=== PATIENT | female | born 1990 | race Caucasian/White ===

== ENCOUNTER 2020-03-30 05:56 | Emergency (ER) | payer BC ==
[2020-03-30 06:22] LABS: Absolute Lymphocytes (CBC) 2.5 K/uL (0.7-4.9); Basophils % 1.1 % (0-1.3); Hematocrit 35.6 % (36.0-45.0); Lymphocytes % 20.6 % (15.3-44.8); MPV 7.8 fL (7.6-11.3); RBC Red Blood Cell Count 4.21 M/uL (3.86-4.86)
[2020-03-30] MEDS ORDERED: MORPHINE 4 MG/ML SYR ONE (06:29)
[2020-03-30] MEDS ORDERED: ONDANSETRON 4 MG/2 ML VIAL ONE (06:29)
[2020-03-30 06:37] LABS: ALT/SGPT 17 U/L (12-78); AST/SGOT 12 U/L (15-37); Albumin 3.4 g/dL (3.4-5.0); Alkaline Phosphatase 112 U/L (45-117); BUN Blood Urea Nitrogen 16 mg/dL (7-18); Bicarbonate 26 mmol/L (21-32); Bilirubin Direct < 0.1 mg/dL (0-0.2); Bilirubin Total 0.2 mg/dL (0.2-1.0); Glucose Level 115 mg/dL (74-106); Lipase 72 U/L (73-393); Potassium 3.9 mmol/L (3.5-5.1); Sodium Level 140 mmol/L (136-145)
[2020-03-30 07:42] LABS: Urine Blood TRACE (NEG); Urine Glucose NEGATIVE (NEG); Urine Protein NEGATIVE (NEG); Urine Specific Gravity >1.030 (1.005-1.030); Urine pH 5.5 (5.0-7.0)
--- NOTE | 2020-03-30 07:44 | RAD REPORT ---
EXAM DESCRIPTION: CT - Abdomen Pelvis W Contrast - 03/30/2020 7:29 am CLINICAL HISTORY: Abdominal pain/upper abdominal pain COMPARISON: none. TECHNIQUE: Computed axial tomography of the abdomen pelvis was obtained. 100 cc Isovue-300 was admin istered intravenously. Oral contrast was not requested which limits evaluation of bowel. All CT scans are performed using dose optimization technique as appropriate and may include automated exposure control or mA/KV adjustment according to patient size. FINDINGS: The liver, spleen, pancreas, adrenal and kidneys appear unremarkable. There is no evidence of diverticulitis. Normal appendix Small gallstone. Gallbladder wall is not thickened. Small umbilical hernia contains fat IMPRESSION: Cholelithiasis without evidence of cholecystitis
--- NOTE | 2020-03-30 07:58 | ER ---
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 pt states this pain radiates into the right upper back and right shoulder area, denies N/V/D/Fever/Chills at this time for triage. Coronavirus screen: Client denies travel out of the [place] in the last 14 days. At this time, the client does not indicate any symptoms associated with coronavirus-19. Ebola Screen: Patient negative for fever greater than or equal to 101.5 degrees Fahrenheit, and additional compatible Ebola Virus Disease symptoms Patient denies exposure to infectious person. Patient denies travel to an Ebola-affected area in the 21 days before illness onset. No symptoms or risks identified at this time. Initial Sepsis Screen: Does the patient have a suspected source of infection? Yes: Acute abdominal pain. Risk Assessment: Do you want to hurt yourself or someone else? Patient reports no desire to harm self or others. Onset of symptoms was March 30, 2020. Care prior to arrival: None. Transition of care: patient was not received from another setting of care. 06:05 Acuity: ANUEL 3 sg 06:05 Method Of Arrival: Ambulatory 06:19 Initial Sepsis Screen: Does the patient meet any 2 criteria? No. Patient's initial rv sepsis screen is negative. Historical: - Allergies: 06:07 No Known Allergies; sg - Home Meds: 06:07 levothyroxine 100 mcg tab 1 tab once daily [Active]; sg - PMHx: 06:07 Hypothyroidism; sg - PSHx: 06:07 None; sg - Immunization history:: Adult Immunizations up to date. - Social history:: Smoking status: Patient denies any tobacco usage or history of. - Family history:: not pertinent. - Hospitalizations: : No recent hospitalization is reported. Screenin:19 Abuse screen: Denies threats or abuse. Denies injuries from another. Nutritional rv screening: No deficits noted. Tuberculosis screening: No symptoms or risk factors identified. Fall Risk None identified. Assessment: 06:18 General: Appears uncomfortable, Behavior is calm, cooperative. Pain: Complains of pain rv in right upper quadrant. Neuro: Level of Consciousness is awake, alert, obeys commands, Oriented to person, place, time, situation. Cardiovascular: Patient's skin is warm and dry. Respiratory: Airway is patent Respiratory effort is even, unlabored. GI: Bowel sounds present X 4 quads. Abd is soft and non tender X 4 quads. Derm: Skin is intact. 07:00 Reassessment: RECD REPORT FROM HILDA NIÑO. 30YO BF P/W ABDOMINAL PAIN, JOSE MARIA W/U IN bp PROCESS. 07:16 Reassessment: PT to CT at this time VIA wheelchair. ss 07:20 Reassessment: Patient appears in no apparent distress at this time. Patient and/or ss family updated on plan of care and expected duration. Pain level reassessed. Patient is alert, oriented x 3, equal unlabored respirations, skin warm/dry/pink. Patient denies pain at this time. 07:53 Reassessment: CT results back. 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 Dr. Jung states to ss go ahead and CANCEL ultrasound at this time. Pt appears comfortable. Denies pain at this time. Respirations remain even and unlabored. Vital Signs: 06:18 BP 139 / 97; Pulse 91; Resp 18; Temp 97.6; Pulse Ox 99% ; Weight 108.86 kg; rv 07:14 BP 130 / 80; Pulse 68; Resp 18; Temp 97.9(TE); Pulse Ox 99% on R/A; mh5 ED Course: 06:00 Patient arrived in ED. bp1 06:01 Drake Beck MD is Attending Physician. rn 06:02 Raj Garza RN is Primary Nurse. rv 06:06 Triage completed. sg 06:07 Arm band placed on. sg 06:12 Initial lab(s) drawn, by me, sent to lab. Inserted saline lock: 20 gauge in right rv antecubital area, using aseptic technique. Blood collected. 06:19 Patient has correct armband on for positive identification. Placed in gown. Bed in low rv position. Call light in reach. Pulse ox on. NIBP on. 07:08 Attending Physician role handed off by Drake Beck MD [facility] 07:08 Radames Jung MD is Attending Physician. omayra 07:29 CT Abd/Pelvis - IV Contrast Only In Process Unspecified. EDMS 07:54 No provider procedures requiring assistance completed. IV discontinued, intact, ss bleeding controlled, No redness/swelling at site. Pressure dressing applied. 07:58 Jovanny Lozano MD is Referral Physician. omayra Administered Medications: 06:19 Drug: Zofran (Ondansetron) 4 mg Route: IVP; Site: right antecubital; rv 07:48 Follow up: Response: No adverse reaction ss 06:20 Drug: morphine 4 mg {Note: RASS 0.} Route: IVP; Site: right antecubital; rv 07:48 Follow up: Response: No adverse reaction; Pain is decreased ss Outcome: 07:57 Discharge ordered by . omayra 08:08 Discharged to home ambulatory. ss 08:08 Condition: improved 08:08 Discharge instructions given to patient, Instructed on discharge instructions, follow up and referral plans. medication usage, Demonstrated understanding of instructions, follow-up care, medications, Prescriptions given X 2. 08:08 Patient left the ED. ss Signatures: Dispatcher [employer] EDMS Gera Eisenberg RN RN sg Anderson, Corey, MD MD cha Nieto, Roman, MD MD rn Smirch, Shelby, RN RN ss Martinez, Maria [facility] Juan Pablo Contreras RN RN bp Vicente, Ronaldo RN RN rv Jessica Calderon bp1
--- NOTE | 2020-03-30 07:58 | EDPHYS ---
Physician Documentation [facility] Name: Sarah Daley Age: 30 yrs Sex: Female : 1990 Arrival Date: 03/30/2020 Time: 06:00 Bed 5 Private MD: ED Physician Radames Jung HPI: 03/30 06:13 This 30 yrs old Female presents to ER via Ambulatory with complaints of Abdominal Pain, rn -Radiating to shoulder. 06:13 The patient presents with abdominal pain in the epigastric area, in the right upper rn quadrant. Onset: The symptoms/episode began/occurred 3 hour(s) ago. The symptoms radiate to the right shoulder. The symptoms are described as crampy, sharp. Modifying factors: The symptoms are alleviated by nothing, the symptoms are aggravated by food, touching the area. Severity of pain: At its worst the pain was moderate in the emergency department the pain is unchanged. The patient has experienced similar episodes in the past. The patient has not recently seen a physician. Reports several similar episodes over last month or so, + upper abd pain radiates to back and shoulder, assoc with nausea, worse with food. No trauma. No blood in stool. No fever. Ate taquitos and chocolate milk for dinner. . Historical: - Allergies: 06:07 No Known Allergies; sg - Home Meds: 06:07 levothyroxine 100 mcg tab 1 tab once daily [Active]; sg - PMHx: 06:07 Hypothyroidism; sg - PSHx: 06:07 None; sg - Immunization history:: Adult Immunizations up to date. - Social history:: Smoking status: Patient denies any tobacco usage or history of. - Family history:: not pertinent. - Hospitalizations: : No recent hospitalization is reported. ROS: 06:13 Constitutional: Negative for fever, chills, and weight loss, Eyes: Negative for injury, rn pain, redness, and discharge, Cardiovascular: Negative for chest pain, palpitations, and edema, Respiratory: Negative for shortness of breath, cough, wheezing, and pleuritic chest pain, Abdomen/GI: Negative for vomiting, diarrhea, and constipation, : Negative for injury, bleeding, discharge, and swelling, MS/Extremity: Negative for injury and deformity, Skin: Negative for injury, rash, and discoloration, Neuro: Negative for headache, weakness, numbness, tingling, and seizure. Exam: 06:13 Constitutional: Overweight female, ambulatory to room, seems uncomfortable Head/Face: rn Normocephalic, atraumatic. Cardiovascular: Regular rate and rhythm. No pulse deficits. Respiratory: Speaking full sentences, unlabored. Abdomen/GI: soft, + RUQ tenderness, + epigastric tenderness, neg boucher Skin: Warm, dry with normal turgor. Normal color with no rashes, no lesions, and no evidence of cellulitis. MS/ Extremity: Pulses equal, no cyanosis. Neurovascular intact. Full, normal range of motion. Equal circumference. Neuro: Awake and alert, GCS 15 Vital Signs: 06:18 BP 139 / 97; Pulse 91; Resp 18; Temp 97.6; Pulse Ox 99% ; Weight 108.86 kg; rv 07:14 BP 130 / 80; Pulse 68; Resp 18; Temp 97.9(TE); Pulse Ox 99% on R/A; mh5 MDM: 06:01 Patient medically screened. rn 07:56 Differential diagnosis: cholecystitis, Cholelithiasis, gastritis, Hepatitis, omayra non-specific abd pain, pancreatitis, Ureterolithiasis, urinary tract infection. Data reviewed: vital signs, nurses notes, lab test result(s), radiologic studies, CT scan. Data interpreted: media monitor: not applicable for this patient encounter. rate is 68 beats/min, rhythm is regular, Pulse oximetry: on room air is 99 %. Test interpretation: by ED physician or midlevel provider:. Counseling: I had a detailed discussion with the patient and/or guardian regarding: the historical points, exam findings, and any diagnostic results supporting the discharge/admit diagnosis, lab results, radiology results, the need for outpatient follow up, for definitive care, a general surgeon. 03/30 06:10 Order name: Basic Metabolic Panel; Complete Time: 06:45 rn 03/30 06:10 Order name: CBC with Diff; Complete Time: 06:45 rn 03/30 06:10 Order name: Hepatic Function; Complete Time: 06:45 rn 03/30 06:10 Order name: Lipase; Complete Time: 06:45 rn 03/30 07:20 Order name: Urine Dipstick--Ancillary (enter results); Complete Time: 07:52 em1 03/30 07:20 Order name: Urine --Ancillary (enter results); Complete Time: 07:52 em1 03/30 06:10 Order name: IV Saline Lock; Complete Time: 06:20 rn 03/30 06:10 Order name: Labs collected and sent; Complete Time: 06:20 rn 03/30 06:10 Order name: Urine Test (obtain specimen); Complete Time: 07:13 rn 03/30 06:10 Order name: Urine Dipstick-Ancillary (obtain specimen); Complete Time: 07:13 rn 03/30 06:10 Order name: CT Abd/Pelvis - IV Contrast Only; Complete Time: 07:52 rn 03/30 06:10 Order name: NPO; Complete Time: 06:20 rn Administered Medications: 06:19 Drug: Zofran (Ondansetron) 4 mg Route: IVP; Site: right antecubital; rv 07:48 Follow up: Response: No adverse reaction ss 06:20 Drug: morphine 4 mg {Note: RASS 0.} Route: IVP; Site: right antecubital; rv 07:48 Follow up: Response: No adverse reaction; Pain is decreased ss Disposition: 03/30/20 07:57 Discharged to Home. Impression: Abdominal tenderness, Cholelithiasis. - Condition is Stable. - Discharge Instructions: Abdominal Pain, Adult, Cholelithiasis, Cholelithiasis, Bkgs-hg-Flge, Abdominal Pain, Adult, [id number]-rr-[id number]. - Prescriptions for Pepcid 20 mg Oral Tablet - take 1 tablet by ORAL route every 12 hours for 10 days; 20 tablet. Zofran 4 mg Oral Tablet - take 1 tablet by ORAL route every 12 hours As needed; 20 tablet. - Medication Reconciliation Form, Thank You Letter, Antibiotic Education, Prescription Opioid Use form. - Follow up: Private Physician; When: 2 - 3 days; Reason: Recheck today's complaints, Continuance of care, Re-evaluation by your physician. Follow up: Jovanny Lozano MD; When: 2 - 3 days; Reason: Recheck today's complaints, Re-evaluation by your physician. - Problem is new. - Symptoms have improved. Signatures: Dispatcher [employer] EDGera Street RN RN sg Anderson, Corey, MD MD cha Nieto, Roman, MD MD rn Smirch, Shelby, RN RN Raj Garza, RN RN rv Corrections: (The following items were deleted from the chart) 07:58 07:57 03/30/2020 07:57 Discharged to Home. Impression: Abdominal tenderness; omayra Cholelithiasis. Condition is Stable. Forms are Medication Reconciliation Form, Thank You Letter, Antibiotic Education, Prescription Opioid Use. Follow up: Private Physician; When: 2 - 3 days; Reason: Recheck today's complaints, Continuance of care, Re-evaluation by your physician. Problem is new. Symptoms have improved. omayra 08:08 07:58 03/30/2020 07:57 Discharged to Home. Impression: Abdominal tenderness; ss Cholelithiasis. Condition is Stable. Forms are Medication Reconciliation Form, Thank You Letter, Antibiotic Education, Prescription Opioid Use. Follow up: Private Physician; When: 2 - 3 days; Reason: Recheck today's complaints, Continuance of care, Re-evaluation by your physician. Follow up: Dr. Jovanny Lozano; When: 2 - 3 days; Reason: Recheck today's complaints, Re-evaluation by your physician. Problem is new. Symptoms have improved. omayra
[2020-03-30 08:15] VITALS: O2SAT 99
[2020-03-30 08:17] VITALS: BP 130/80; TEMP 97.9
== END 2020-03-30 08:08 | disposition home or self-care (01) ==
LOC: ER 05:56
DX: K80.20 Calculus of gallbladder without cholecystitis without obstruction (principal); E03.9 Hypothyroidism, unspecified
CPT/HCPCS: 85025; 80048; 36415; 81025; 80076; 81003; 83690; 74177; 96375; 96374; 99284; Q9967; J2405

== ENCOUNTER 2020-04-08 07:38 | Day surgery (SDC) | payer BC ==
[2020-04-04 15:44] LABS: Absolute Lymphocytes (CBC) 1.9 K/uL (0.7-4.9); Basophils % 0.7 % (0-1.3); Hematocrit 36.9 % (36.0-45.0); Lymphocytes % 23.5 % (15.3-44.8); MPV 7.8 fL (7.6-11.3); RBC Red Blood Cell Count 4.37 M/uL (3.86-4.86)
[2020-04-04 15:56] LABS: ALT/SGPT 22 U/L (12-78); AST/SGOT 19 U/L (15-37); Albumin 3.6 g/dL (3.4-5.0); Alkaline Phosphatase 103 U/L (45-117); BUN Blood Urea Nitrogen 10 mg/dL (7-18); Bicarbonate 27 mmol/L (21-32); Bilirubin Direct < 0.1 mg/dL (0-0.2); Bilirubin Total 0.5 mg/dL (0.2-1.0); Glucose Level 84 mg/dL (74-106); Potassium 4.6 mmol/L (3.5-5.1); Protein, Total 8.4 g/dL (6.4-8.2); Sodium Level 139 mmol/L (136-145)
--- OUTSIDE RECORDS SUMMARY | 2020-04-08 07:41 | XMS REPORT | Continuity of Care Document ---
:1990 Author Organization [facility] t Address [address] [place] [address] Care Team Providers Name Role Phone Kamla Ghosh Attending Clinician Problems This patient has no known problems. Allergies, Adverse Reactions, Alerts This patient has no known allergies or adverse reactions. Medications This patient has no known medications. Procedures This patient has no known procedures. Encounters Start End Encounter Admission Attending Care Care Encounter Source Date/Time Date/Time Type Type Clinicians Facility Department ID 2019-12-25 2019-12-25 Office LUCINDA Eaton [id number] 09:37:08 10:44:19 Visit Lindsay Cason SHIPPING PACKER [id number] [facility] [id number] MATERNAL [id number] & CHILD [address] [place] [address] Results This patient has no known results.
[2020-04-08] MEDS ORDERED: Ringers Lactate 1,000 ML IV ONE ×2 (08:25→10:55)
[2020-04-08] MEDS ORDERED: CEFOXITIN/SWI 1gm 1 GM/10 ML SYR ONE (08:26)
[2020-04-08] MEDS ORDERED: KETOROLAC 30 MG/ML INJ ONE (08:36)
[2020-04-08] MEDS ORDERED: FENTANYL CITR 100 MCG/2 ML ONE ×2 (08:36→10:41)
[2020-04-08] MEDS ORDERED: propofoL 200 MG/20 ML VIAL IV ONE (08:36)
[2020-04-08] MEDS ORDERED: ONDANSETRON 4 MG/2 ML VIAL ONE ×2 (08:36→11:43)
[2020-04-08] MEDS ORDERED: MIDAZOLAM HCL 2 MG/2 ML INJ ONE (08:36)
[2020-04-08] MEDS ORDERED: dexAMETHasone 4 MG/ML VIAL ONE (08:36)
[2020-04-08] MEDS ORDERED: LIDOCAINE 2% MPF 5 ML VIAL ONE (08:36)
[2020-04-08] MEDS ORDERED: ROCURONIUM 50 MG/5 ML VIAL IV ONE (08:37)
[2020-04-08] MEDS ORDERED: NEOSTIGMINE 1 MG/ML -5 ML ONE (10:50)
[2020-04-08] MEDS ORDERED: GLYCOPYRROLATE 0.2 MG/ML SYR ONE ×2 (10:50→10:58)
[2020-04-08] MEDS ORDERED: SUCCINYLCHOLINE 20 MG/ML (10 ML) IV ONE (11:12)
[2020-04-08] MEDS: HYDROMORPHONE HCL 1 MG/ML INJ ONE ×2 (11:13→11:18)
[2020-04-08] MEDS ORDERED: HYDROMORPHONE HCL 1 MG/ML INJ ONE (11:35)
[2020-04-08] MEDS ORDERED: MEPERIDINE HCL 25 MG/ML SYR ONE (11:43)
--- NOTE | 2020-04-08 11:43 | OP ---
Date of Procedure: 02/09/2020 Surgeon: Jovanny Lozano MD Stain Applicator: Poonam Pastor. Preoperative Diagnosis: Symptomatic cholelithiasis. Postoperative Diagnosis: Symptomatic cholelithiasis. Procedure: Laparoscopic cholecystectomy. Estimated Blood Loss: Minimal. Specimen: Gallbladder. Finding: As above. Anesthesia: General. Complications: None. Disposition: The patient tolerated the procedure in stable condition, taken to Recovery in good gene ral condition. Procedure In Detail: The patient was brought to the OR and placed in supine position. General anest hesia was begun. The patient was prepped and draped in the usual sterile fashion. Marcaine 0.5% was infiltrated locally. Then 15 blade was used to make a 2 cm supraumbilical midline incision. Subcut aneous tissue was divided. Fascia was identified and divided. #1 Vicryl stay suture was placed. Pe ritoneal cavity was entered with sharp and blunt dissection. 12 trocar placed into the peritoneal ca vity under direct vision. Pneumoperitoneum was established and then three 5 trocars were placed, 1 i n the epigastrium just to the right of midline and 2 in the right subcostal region. Laparoscopy reve aled chronic inflammation of the gallbladder. Fundus retracted superiorly. Infundibulum was identif ied and retracted inferolaterally. Cystic duct and cystic artery were clearly identified with blunt dissection. Clips were placed. Both structures were divided. Cautery was used to remove the gallbl adder from the liver bed. Bleeding on the liver bed was controlled with cautery. Gallbladder was re trieved through the umbilicus via an EndoCatch bag. Right upper quadrant was irrigated. Effluent wa s clear. No evidence of bleeding or bile leakage appreciated. Subsequently, all trocars were remove d under direct vision. Stay sutures were tied to each other to reapproximate the fascial defect. Torres bcu wounds were irrigated. Bleeding controlled with cautery. 3-0 chromic used to approximate the torres bcutaneous tissue and lamine used to close skin. Sterile dressing was applied. The patient was montrell kened and taken to Recovery in good general condition. Discharge Note: The patient will go to Day Surgery and home when stable. Disposition: Home. Condition: Stable. Discharge Instructions: Resume home medications and diet. Activity as tolerated. No heavy lifting. Remove outer dressing in 2 days. Shower. Keep wound clean and dry. Follow up in my office 1 week . Call for appointment. Tylenol No.3 one tablet p.o. q.4 p.r.n. pain. Incentive spirometry is orde red. /MARYANNL Voice ID: [id number] Report ID: [id number]
[2020-04-08 11:55] VITALS: TEMP 97.6; O2SAT 95
[2020-04-08] MEDS ORDERED: HYDROCODONE/APAP 7.5/325 MG TAB ONE (12:10)
[2020-04-08 12:43] VITALS: BP 134/78
== END 2020-04-08 12:50 | disposition home or self-care (01) ==
LOC: OR 07:38
PROVIDERS: ATTEND Surgery
PROC: 0FT44ZZ Resection of Gallbladder, Percutaneous Endoscopic Approach (ICD-10-PCS; principal; 2020-04-08 09:30)
DX: K80.10 Calculus of gallbladder with chronic cholecystitis without obstruction (principal); E07.9 Disorder of thyroid, unspecified; Z20.828 Contact with and (suspected) exposure to other viral communicable diseases
CPT/HCPCS: 85025; 80048; 36415 ×2; 82150; 84703; 80076; 88304; 47562; U0002; J2704; J1100; J0330; J2250; J3010 ×2; J2175; J1170 ×2; J2710; J7120 ×2; J2405 ×2

== ENCOUNTER 2020-04-09 18:22 | Emergency (ER) | payer BC ==
--- OUTSIDE RECORDS SUMMARY | 2020-04-09 18:24 | XMS REPORT | Continuity of Care Document ---
:1990 Author Organization [facility] t Address 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
[2020-04-09] MEDS ORDERED: DIPHENHYDRAMINE 25 MG TAB/CAP ONE (21:07)
[2020-04-09] MEDS ORDERED: METHYLPREDNISOLONE 125 MG INJ ONE (21:07)
[2020-04-09] MEDS ORDERED: FAMOTIDINE 20 MG TAB ONE ×2 (21:08→21:10)
--- NOTE | 2020-04-09 21:12 | ER ---
Nurse's Notes [facility] Name: Sarah Daley Age: 30 yrs Sex: Female : 1990 Arrival Date: 04/09/2020 Time: 18:23 Bed 27 Private MD: Diagnosis: Allergy status to drugs, medicaments and biological substances Presentation: 04/09 18:44 Chief complaint: Patient states: had same day surgery to remove my gallbladder ca1 yesterday. they had prescribed me Tylenol#3, I started taking it yesterday afternoon, this morning started having red rashes on both arms, chest and neck. Denies difficulty breathing and swallowing. Reports itchiness on rashes. Last dose of Tylenol #3 taken at 1630. Took Benadryl at 1800. Coronavirus screen: Client denies travel out of the [place] in the last 14 days. At this time, the client does not indicate any symptoms associated with coronavirus-19. The client reports previous COVID testing was negative. Date of collection: March 2020. Ebola Screen: Patient negative for fever greater than or equal to 101.5 degrees Fahrenheit, and additional compatible Ebola Virus Disease symptoms Patient denies exposure to infectious person. Patient denies travel to an Ebola-affected area in the 21 days before illness onset. No symptoms or risks identified at this time. Initial Sepsis Screen: Does the patient meet any 2 criteria? No. Patient's initial sepsis screen is negative. Does the patient have a suspected source of infection? No. Patient's initial sepsis screen is negative. Risk Assessment: Do you want to hurt yourself or someone else? Patient reports no desire to harm self or others. Onset of symptoms was April 09, 2020. 18:44 Method Of Arrival: Ambulatory ca1 18:44 Acuity: ANUEL 3 ca1 21:25 Anaphylaxis evaluation, no signs or symptoms of anaphylaxis were noted. 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 - Social history:: Smoking status: Patient denies any tobacco usage or history of. Screenin:00 Abuse screen: Denies threats or abuse. Nutritional screening: No deficits noted. bb Tuberculosis screening: No symptoms or risk factors identified. Fall Risk None identified. Assessment: 20:00 General: Appears in no apparent distress. Behavior is calm, cooperative. Pain: bb Complains of pain in abdomen. Neuro: Level of Consciousness is awake, alert, obeys commands, Oriented to person, place, time, situation. Cardiovascular: No deficits noted. Respiratory: Airway is patent Respiratory effort is even, unlabored, Breath sounds are clear bilaterally. GI: pt is one day status post cholecystectomy. Derm: Skin is pink, warm \T\ dry. Reports itching, and rash all over after taking hydrocodone. Musculoskeletal: Circulation, motion, and sensation intact. 21:23 Reassessment: Patient is alert, oriented x 3, equal unlabored respirations, skin bb warm/dry/pink. pt verbalized understanding of and agrees to plan of care discharge instructions given pt ambulated with steady gait to exit accompanied by spouse. Vital Signs: 18:44 BP 115 / 64; Pulse 79; Resp 17 S; Temp 97(TE); Pulse Ox 99% on R/A; Weight 120.66 kg ca1 (R); Height 5 ft. 5 in. (165.10 cm) (R); Pain 0/10; 21:23 BP 99 / 72; Pulse 80; Resp 16 S; Pulse Ox 98% on R/A; bb 18:44 Body Mass Index 44.26 (120.66 kg, 165.10 cm) ca1 ED Course: 18:23 Patient arrived in ED. ds1 18:48 Triage completed. ca1 19:51 Radames Galindo PA is PHCP. cp 19:51 Drake Beck MD is Attending Physician. cp 20:00 Patient has correct armband on for positive identification. Bed in low position. Call bb light in reach. Side rails up X 1. Adult w/ patient. Pulse ox on. NIBP on. 20:00 Patient did not have IV access during this emergency room visit. bb 21:25 No provider procedures requiring assistance completed. bb Administered Medications: 21:00 Drug: SOLU-Medrol 125 mg Route: IM; Site: right gluteus; bb 21:23 Follow up: Response: No adverse reaction bb 21:05 Drug: Benadryl 25 mg Route: PO; bb 21:23 Follow up: Response: No adverse reaction bb 21:05 Drug: Pepcid 20 mg Route: PO; bb 21:23 Follow up: Response: No adverse reaction bb Outcome: 21:11 Discharge ordered by . cp 21:25 Discharged to home ambulatory, with family. bb 21:25 Condition: stable 21:25 Discharge instructions given to patient, Instructed on discharge instructions, follow up and referral plans. medication usage, Demonstrated understanding of instructions, follow-up care, medications, Prescriptions given X 3. 21:26 Patient left the ED. bb Signatures: Sylvia Collins ds1 Cindy Corrales RN RN bb Radames Galindo PA PA cp Acob, Cheryl RN RN ca1 Corrections: (The following items were deleted from the chart) 18:50 18:44 Chief complaint: Patient states: had same day surgery to remove my gallbladder ca1 yesterday. they had prescribed me Tylenol#3, I started taking it yesterday afternoon, this morning started having red rashes on both arms, chest and neck. Denies difficulty breathing and swallowing. Reports itchiness on rashes. Last dose of Tylenol #3 taken at 1630. Took Benadryl at 1800 ca1
--- NOTE | 2020-04-09 21:12 | EDPHYS ---
Physician Documentation [facility] Name: Sarha Daley Age: 30 yrs Sex: Female : 1990 Arrival Date: 04/09/2020 Time: 18:23 Bed 27 Private MD: ED Physician Drake Beck HPI: 04/09 20:35 This 30 yrs old Female presents to ER via Ambulatory with complaints of cp Allergic Reaction. 20:35 The patient presents with itching, rash, of the chest, right arm and left arm, redness cp of skin. 20:35 Onset: The symptoms/episode began/occurred today. Possible causes: narcotic, codeine. cp At home the patient or guardian has treated the symptoms with Benadryl, took 1 tablet. 20:35 Patient reports rash started today. has been taking tylenol with codeine for pain after cp having cholecystectomy performed by DR Lozano yesterday. TREATER: 18:49 LMP 04/01/2020 ca1 Historical: - Allergies: 18:49 Codeine; ca1 - Home Meds: 18:49 levothyroxine 100 mcg tab 1 tab once daily [Active]; ca1 - PMHx: 18:49 Hypothyroidism; ca1 - PSHx: 18:49 Cholecystectomy; ca1 - Immunization history:: Adult Immunizations up to date, Flu vaccine is not up to date. - Social history:: Smoking status: Patient denies any tobacco usage or history of. ROS: 20:40 Constitutional: Negative for body aches, chills, fever, poor PO intake. cp 20:40 Eyes: Negative for injury, pain, redness, and discharge. cp 20:40 Skin: Positive for rash, of the chest, right arm and left arm. cp 20:40 ENT: Negative for ear pain, sore throat, difficulty swallowing, difficulty handling cp secretions. 20:40 Respiratory: Negative for cough, shortness of breath, wheezing. 20:40 Neuro: Negative for headache. 20:40 All other systems are negative. Exam: 20:45 Constitutional: The patient appears in no acute distress, alert, awake, non-toxic, well cp developed, well nourished. 20:45 Head/Face: Normocephalic, atraumatic. cp 20:45 Eyes: Periorbital structures: appear normal, Conjunctiva: normal, no exudate, no injection, Sclera: no appreciated abnormality, Lids and lashes: appear normal, bilaterally. 20:45 ENT: External ear(s): are unremarkable, Nose: is normal, Mouth: Lips: moist, Oral mucosa: moist, Posterior pharynx: Airway: no evidence of obstruction, patent. 20:45 Chest/axilla: Palpation: is normal, no crepitus, no tenderness. 20:45 Cardiovascular: Rate: normal, Rhythm: regular. 20:45 Respiratory: the patient does not display signs of respiratory distress, Respirations: normal, no use of accessory muscles, no retractions, labored breathing, is not present, Breath sounds: are clear throughout, no decreased breath sounds, no stridor, no wheezing. 20:45 Abdomen/GI: Inspection: distension, is not seen. 20:45 Skin: rash can be described as urticarial, on the right arm and left arm. Vital Signs: 18:44 BP 115 / 64; Pulse 79; Resp 17 S; Temp 97(TE); Pulse Ox 99% on R/A; Weight 120.66 kg ca1 (R); Height 5 ft. 5 in. (165.10 cm) (R); Pain 0/10; 21:23 BP 99 / 72; Pulse 80; Resp 16 S; Pulse Ox 98% on R/A; bb 18:44 Body Mass Index 44.26 (120.66 kg, 165.10 cm) ca1 MDM: 20:03 Patient medically screened. cp 21:10 Data reviewed: vital signs, nurses notes. cp 21:10 Counseling: I had a detailed discussion with the patient and/or guardian regarding: the cp historical points, exam findings, and any diagnostic results supporting the discharge/admit diagnosis, to return to the emergency department if symptoms worsen or persist or if there are any questions or concerns that arise at home. Response to treatment: the patient's symptoms have mildly improved after treatment, and as a result, I will discharge patient. Administered Medications: 21:00 Drug: SOLU-Medrol 125 mg Route: IM; Site: right gluteus; bb 21:23 Follow up: Response: No adverse reaction bb 21:05 Drug: Benadryl 25 mg Route: PO; bb 21:23 Follow up: Response: No adverse reaction bb 21:05 Drug: Pepcid 20 mg Route: PO; bb 21:23 Follow up: Response: No adverse reaction bb Disposition: 23:13 Co-signature as Attending Physician, Drake Beck MD. rn Disposition: 04/09/20 21:11 Discharged to Home. Impression: Allergy status to drugs, medicaments and biological substances. - Condition is Stable. - Discharge Instructions: Drug Allergy. - Prescriptions for Pepcid 20 mg Oral Tablet - take 1 tablet by ORAL route every 12 hours for 5 days; 10 tablet. Prednisone 20 mg Oral Tablet - take 2 tablet by ORAL route once daily for 5 days; 10 tablet. Tramadol 50 mg Oral Tablet - take 1 tablet by ORAL route every 8 hours as needed; 12 tablet. - Medication Reconciliation Form, Thank You Letter, Antibiotic Education, Prescription Opioid Use form. - Follow up: Private Physician; When: 1 - 2 days; Reason: Recheck today's complaints. - Problem is new. - Symptoms have improved. Signatures: Cindy Corrales RN RN bb Nieto, Roman, MD MD rn Page, Corey, PA PA cp Acob, Cheryl, RN RN ca1 Corrections: (The following items were deleted from the chart) 21:26 21:11 04/09/2020 21:11 Discharged to Home. Impression: Allergy status to drugs, bb medicaments and biological substances. Condition is Stable. Forms are Medication Reconciliation Form, Thank You Letter, Antibiotic Education, Prescription Opioid Use. Follow up: Private Physician; When: 1 - 2 days; Reason: Recheck today's complaints. Problem is new. Symptoms have improved. cp
[2020-04-10 04:06] VITALS: TEMP 97
[2020-04-10 04:08] VITALS: BP 99/72; O2SAT 98
== END 2020-04-09 21:26 | disposition home or self-care (01) ==
LOC: ER 18:22
DX: R21 Rash and other nonspecific skin eruption (principal); Z88.5 Allergy status to narcotic agent; Z90.49 Acquired absence of other specified parts of digestive tract; E03.9 Hypothyroidism, unspecified
CPT/HCPCS: 96372; 99283; J2930